=== PATIENT | female | born 1970 | race Caucasian/White ===

== ENCOUNTER 2024-10-20 17:04 | Emergency (ER) | payer BC, SELFPAY ==
[2024-10-20 17:11] VITALS: BP 115/85
[2024-10-20 17:34] LABS: % Basophils 0.2 % (0-2); % Eosinophils 3.7 % (0-6); % Immature Granulocytes 0.1 % (0-0.5); % Lymphocytes 22.6 % (20.5-51.1); % Monocytes 6.7 % (1.7-9.3); % Neutrophils 66.7 % (42.2-75.2); Absolute Eosinophils 0.3 10^3/uL (0-0.7); Absolute Monocytes 0.6 10^3/uL (0.1-0.6); Hematocrit 40.9 % (37.0-47.0); Hemoglobin 13.8 g/dL (12.0-16.0); Mean Corp Hgb Conc. 33.7 g/dL (33.0-37.0); Mean Corpuscular Hgb 28.2 pg (27.0-31.0); Mean Corpuscular Volume 83.6 fL (81.0-99.0); Mean Platelet Volume 10.1 fL (7.4-10.4); Nucleated Red Blood Cells % 0 %; Platelet Count 319 10^3/uL (130-400); Red Blood Cell Count 4.89 10^6/uL (4.20-5.40); Red Cell Dist. Width 12.5 % (11.5-14.5); Urine Albumin Negative (Neg - Trace); Urine Bilirubin Negative (Negative); Urine Character Clear (Clear); Urine Color Yellow; Urine Glucose Negative (Negative); Urine Ketone Negative (Negative); Urine Leukocyte 2+ (Negative); Urine Nitrite Negative (Negative); Urine Occult Blood Negative (Negative); Urine Urobilinogen Negative (Neg - 1+)
[2024-10-20 17:42] LABS: HCG, Serum Qualitative Screen Negative
[2024-10-20 17:51] LABS: ALT (SGPT) 19 U/L (0-35); AST (SGOT) 18 U/L (14-36); Albumin 4.3 g/dl (3.5-5.0); Alkaline Phosphatase 46 U/L (38-126); Blood Urea Nitrogen 12 mg/dl (7-17); Calcium 9.6 mg/dl (8.4-10.2); Carbon Dioxide 25 mmol/L (22-30); Chloride 105 mmol/L (98-107); Glucose 99 mg/dl (70-99); Lipase 82 U/L (23-300); Potassium 3.6 mmol/L (3.5-5.1); Sodium 139 mmol/L (135-145); Total Bilirubin 0.7 mg/dl (0.2-1.3); Total Protein 7.1 g/dl (6.3-8.2); eGFR > 60.00
[2024-10-20 18:13] LABS: Urine Squamous Cell 16-20 /LPF (Few)
[2024-10-20 18:14] LABS: Urine Red Blood Cell 0-2 /HPF (0-2); Urine White Cell 0-2 /HPF (0-5)
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
[2024-10-20] MEDS: NSS 1000 IV (19:33)
[2024-10-20] MEDS: ZOFRAN 4 MG IV (19:33)
[2024-10-20] MEDS: FLAGYL 500 MG PO (20:59)
[2024-10-20] MEDS: LEVAQUIN 500 MG PO (20:59)
[2024-10-20 21:04] VITALS: BP 136/88
== END 2024-10-20 21:25 | disposition home or self-care (01) ==
LOC: EMR 17:04
PROVIDERS: Emergency Medicine; EMERGENCY PHYSICIAN Emergency Medicine; FAMILY PHYSICIAN Family Medicine
DX: K52.9 Noninfective gastroenteritis and colitis, unspecified (principal); Z82.49 Family history of ischemic heart disease and other diseases of the circulatory system
CPT/HCPCS: 99284; 96374; 74177; 80053; 81003; 81015; 83690; 84703; 85025; 87086; Q9967